=== PATIENT | male | born 1990 | race Caucasian/White ===

== ENCOUNTER 2017-04-10 13:30 | Emergency (ER) | payer OTHER ==
[~2017-04-10] VITALS: Ht 177.8 cm; Wt 72.7 kg
[2017-04-10 13:57] VITALS: BP 119/74; PULSE 69; RESP 10; O2SAT 98
--- NOTE | 2017-04-10 16:15 | ED.REPORT ---
HPI-Overdose/Alcohol Toxicity Date of Service Apr 10, 2017 ED Provider: Doc,Ed MD History of Present Illness: 26yo male with hx. of heroin abuse x 4 years. Smokes it, no IV use. Also uses marijuana. No other drugs and no prescribed meds. he has taken Suboxone off the street from friends. He has had success with same. He's never had it prescribed. He gets diarrhea and anxious when withdrawing. last smoked heroin 2 days ago. Declines meds for withdrawl symptoms, "They don't work for me." Nursing Notes Stated Complaint: DETOX Chief Complaint: Substance Abuse Nursing Notes Reviewed: Yes Allergies: Coded Allergies: No Known Allergies (Unverified , 04/10/17) General Time Seen by Provider: 16:14 Chief Complaint Other Complaint Description: Heroin use disorder Hx Obtained From: Patient Arrived By: Walk-in Onset Occurred: More than a week ago... (>6 months) Risk-Overdose/Alcohol Tox )( Suicide Risk Stratification : Substance abuse RF Statements: Risk factors reviewed Past Medical History Past Medical History substance abuse Smoking History Unknown if Ever Smoker Social History Alcohol Use: "Social" Drug Use: THC, Other (smokes heroin) Ambulatory Status Independent Review of Systems Constitutional: Denies: Chills, Fever GI: Reports: Diarrhea, Denies: Abdominal pain Skin: Denies Diaphoresis Psychiatric: Reports: Anxiety, Denies: Confusion, Homicidal ideation, Suicidal ideation Complete sys rev & neg: except as marked. Physical Exam Initial Vital Signs Vital Signs (First) Date Time Temp Pulse Resp B/P Pulse Ox O2 Delivery O2 Flow Rate FiO2 04/10/17 13:57 37.1 69 10 119/74 98 Initial VS: Reviewed General/Constitutional: Awake, Alert, No acute distress, Well hydrated, Not toxic appearing Respiratory / Chest: Breath sounds NL, Breath sounds = bilat, No respiratory distress Cardiovascular: Heart rate NL, Regular rhythm, Heart sounds NL Abdomen: Soft, Non-tender Psychiatric: Not suicidal, No hallucinations, Judgment/insight NL, Thought content NL Re-Eval/Medical Decision Med Decision/Clinical Course Pt. is opioid dependent, desires Suboxone. Spoke with STATE DIRECTOR who recommended [facility] or [facility]. Pt. has an appt. at [facility] on Friday, 04/14 at 9:30 AM I arranged appt. through Katelyn in that office. Gave [facility] contactr number: [phone] if tomorrow would work better. case discussed with Dr. Sampson who concurs with plan. Counseled Regarding: Diagnosis, Need for follow-up, When/why to return to ED Discharge & Departure Impression: Primary Impression: Substance abuse Disposition: LEFT WITHOUT BEING SEEN Discharge Condition Condition: Improved Patient Instructions: Opioid Dependence (ED) Additional Instructions: Call [facility] tomorrow: [phone]. If you cannot be seen by a Suboxone prescriber tomorrow, you have an appointment at [facility] on Friday, 04/14 at 9:30am. bring a photo ID and your insurance card if available to that appointment. Referrals: [facility] EDSupervising Provider for [facility]: Oswaldo Sampson MD, Christopher R PAC Apr 10, 2017 16:15
== END 2017-04-10 17:14 | disposition left against medical advice (07) ==
LOC: SED 13:30
DX: F15.10 Other stimulant abuse, uncomplicated (principal); R19.7 Diarrhea, unspecified; F41.9 Anxiety disorder, unspecified